=== PATIENT | male | born 1950 | race Caucasian/White ===

== ENCOUNTER 2018-06-20 14:52 | Emergency (ER) | payer MEDICARE, OTHER ==
[~2018-06-20] VITALS: Ht 182.9 cm; Wt 117.0 kg
[~2018-06-20 14:52] MED LIST: ASPIRIN EC81 M1; ASPIRIN EC81 M1 PO; BACTRIM DS TAB1 EACH PO; BYSTOLIC10 MG PO; CARDURA2 MG PO; CIPROFLOXACIN500 M3 PO; DOXEPIN 10 MG C10 M1; GLUCOPHAGE500 MG PO; GLUCOVANCE 5-51 EACH PO; LISINOPRIL20 MG PO; MOBIC15 MG PO; NEXIUM40 MG PO; PERCOCET 5-3251 EACH PO; PYRIDIUM200 M1 PO; TAMSULOSIN HCL0.4 M1 PO; ZOFRAN4 MG PO; ZYVOX600 MG
[2018-06-20] MEDS ORDERED: METFORMIN HCL500 MG PO (15:13)
[2018-06-20] MEDS ORDERED: TRESIBA100 UNIT/1 SUBQ (15:13)
[2018-06-20] MEDS ORDERED: COZAAR 25 MG TA25 M1 PO (15:14)
[2018-06-20] MEDS ORDERED: HUMALOG100 UNIT/1 SUBQ (15:14)
[2018-06-20] MEDS ORDERED: ACETAMINOPHEN-1 EAC1 PO (16:16)
[2018-06-20] MEDS ORDERED: IBUPROFEN 800800 M1 PO (16:17)
[2018-06-20] MEDS ORDERED: NORCO 5-325 TA1 EACH PO (16:32)
[2018-06-20 16:38] VITALS: BP 196/106
== END 2018-06-20 16:39 | disposition home or self-care (01) ==
LOC: M.ERS 14:52
DX: R51 Headache (principal); M54.2 Cervicalgia; M54.6 Pain in thoracic spine; E11.9 Type 2 diabetes mellitus without complications; I10 Essential (primary) hypertension; M19.90 Unspecified osteoarthritis, unspecified site; K21.9 Gastro-esophageal reflux disease without esophagitis; Z88.5 Allergy status to narcotic agent; Z88.6 Allergy status to analgesic agent

== ENCOUNTER → 2018-06-28 | Outpatient (CLI) | payer MEDICARE, OTHER ==
[~2018-06-28] MED LIST changes: +ACETAMINOPHEN-1 EAC1 PO; +COZAAR 25 MG TA25 M1 PO; +HUMALOG100 UNIT/1 SUBQ; +IBUPROFEN 800800 M1 PO; +METFORMIN HCL500 MG PO; +NORCO 5-325 TA1 EACH PO; +TRESIBA100 UNIT/1 SUBQ
== END ==
LOC: M.ULTRA 13:12
DX: M71.21 Synovial cyst of popliteal space [Baker], right knee (principal); R59.9 Enlarged lymph nodes, unspecified

== ENCOUNTER 2020-08-16 11:55 | Inpatient (IN) | payer MEDICARE, OTHER ==
[2020-08-16] VITALS (7 sets, daily range): BP systolic 95–135; BP diastolic 50–78
[~2020-08-16] VITALS: Ht 182.9 cm; Wt 130.7 kg
[2020-08-16] MEDS ORDERED: XARELTO10 M1 PO (12:16)
[2020-08-16 12:20] LABS: ABSOLUTE BASOPHILS 0.1 thou/uL (0.0-0.2); ABSOLUTE EOSINOPHILS 0.1 thou/uL (0.0-0.7); ABSOLUTE LYMPHOCYTES 1.4 thou/uL (0.8-5.3); ABSOLUTE MONOCYTES 0.6 thou/uL (0.0-1.2); ABSOLUTE NEUTROPHILS 3.7 thou/uL (1.6-8.1); BASOPHILS 1.3 %; EOSINOPHILS 1.6 %; HEMATOCRIT 42.3 % (42.0-52.0); HEMOGLOBIN 14.3 gm/dL (14.0-18.0); LYMPHOCYTES 23.8 %; MCH 28.6 pg (26.0-34.0); MCHC 33.7 g/dL (28.0-37.0); MCV 84.8 fL (80.0-100.0); MONOCYTES 10.6 %; MPV 8.9 fl. (7.2-11.1); NUCLEATED RBCS 0 /100WBC; PLATELET COUNT* 189 thou/uL (150-400); POLYS 62.7 %; RBC 4.99 mil/uL (4.50-6.00); RDW-CV 13.8 % (10.5-14.5); WBC 5.9 thou/uL (4.0-11.0)
[2020-08-16 12:28] LABS: CALCIUM 9.2 mg/dL (8.5-10.1); CREATININE 1.9 mg/dL (0.6-1.3); POTASSIUM 3.8 mmol/L (3.5-5.1)
[2020-08-16 12:39] LABS: ALBUMIN 3.8 g/dL (3.4-5.0); MAGNESIUM 1.7 mg/dL (1.8-2.4); TOTAL BILIRUBIN 0.8 mg/dL (<0.1-1.0); TOTAL PROTEIN 6.9 g/dL (6.4-8.2)
--- NOTE | 2020-08-16 17:44 | 2DMMODE ---
[place] [address] 2 D/M-MODE ECHOCARDIOGRAM Name: NICHO CHAVEZ Room: [place] [address] ADM IN [place].#: [id number] Admission: 08/16/20 Attend Phys: Johnie Aquino, Discharge: Date of : 54 Date of Service: 08/16/20 1743 Report #: [id number] THIS REPORT FOR: cc: Gideon Galvan John E. DO Liston, Michael J. MD [facility] ~ APPROVED REPORT Study performed: 08/16/2020 15:40:51 EXAM: Comprehensive 2D, Doppler, and color-flow Echocardiogram Patient Location: In-Patient Room #: ER Status: routine BSA: 2.46 HR: 58 bpm BP: 106/65 mmHg Rhythm: NSR Other Information Study Quality: Good Indications DIZZINESS 2D Dimensions IVSd: 12.35 (7-11mm) LVOT Diam: 21.07 (18-24mm) LVDd: 48.85 mm PWd: 13.43 (7-11mm) Ascending Ao: 39.75 (22-36mm) LVDs: 29.55 (25-40mm) Aortic Root: 34.91 mm Volumes Left Atrial Volume (Systole) LA ESV Index: 26.70 mL/m2 Aortic Valve AoV Peak Fab.: 1.03 m/s AO Peak Gr.: 4.27 mmHg LVOT Max P.51 mmHg AO Mean Gr.: 2.61 mmHg LVOT Mean P.68 mmHg LVOT Max V: 0.94 m/s AO V2 VTI: 20.24 cm LVOT Mean V: 0.60 m/s ELLEN (VTI): 3.43 cm2 LVOT V1 VTI: 19.92 [place] [address] 2 D/M-MODE ECHOCARDIOGRAM Name: NICHO CHAVEZ Room: [address] IN ..#: [id number] Admission: 08/16/20 Attend Phys: Johnie Aquino, Discharge: Date of : 54 Date of Service: 08/16/20 1743 Report #: [id number] Mitral Valve E/A Ratio: 0.54 MV Decel. Time: 290.07 ms MV E Max Fab.: 0.39 m/s MV PHT: 84.12 ms MVA (PHT): 2.62 cm2 Pulmonary Valve PV Peak Fab.: 0.92 m/s PV Peak Gr.: 3.36 mmHg Left Ventricle The left ventricle is normal size. There is normal LV segmental wall motion. There is normal left ventricular wall thickness. Left ventricular systolic function is normal. LVEF is 55-60%. Grade I - abnormal relaxation pattern. Right Ventricle The right ventricle is normal size. The right ventricular systolic function is normal. Atria Left atrium is mildly dilated. The right atrium size is normal. Aortic Valve Mild aortic valve sclerosis. No aortic regurgitation is present. There is no aortic valvular stenosis. Mitral Valve The mitral valve is normal in structure. There is no mitral valve regurgitation noted. No evidence of mitral valve stenosis. Tricuspid Valve The tricuspid valve is normal in structure. Trace tricuspid regurgitation. Unable to assess PA pressure. Pulmonic Valve The pulmonary valve is normal in structure. There is no pulmonic valvular regurgitation. Great Vessels The aortic root is normal in size. The ascending aorta is mildly dilated. (3.98 cm) IVC is normal in size and collapses >50% with inspiration[place] [address] 2 D/M-MODE ECHOCARDIOGRAM Name: CASEY CHAVEZYury HERNANDEZ Room: [address] IN [facility]#: [id number] Admission: 08/16/20 Attend Phys: Johnie Aquino, Discharge: Date of : 54 Date of Service: 08/16/20 1743 Report #: [id number] There is no pericardial effusion. <Conclusion> The left ventricle is normal size. There is normal left ventricular wall thickness. Left ventricular systolic function is normal. LVEF is 55-60%. Grade I - abnormal relaxation pattern. There is normal LV segmental wall motion. Left atrium is mildly dilated. Trace tricuspid regurgitation. IVC is normal in size and collapses >50% with inspiration. The ascending aorta is mildly dilated. (3.98 cm) <ELECTRONICALLY SIGNED> By: Won Barnes MD, [facility] 08/16/20 [id number] Won Barnes MD, FACC /INF
--- NOTE | 2020-08-16 17:45 | EKG ---
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 : 1950 Requested By: Fernandez Hamilton Order Number: [id number] MD: Won Barnes Measurements Intervals Anderson Rate: 81 P: 34 MD: 170 QRS: -10 QRSD: 117 T: 50 QT: 410 QTc: 476 Interpretive Statements Sinus rhythm Nonspecific intraventricular conduction delay Inferior infarct, old Compared to ECG 05/14/2012 12:40:31 Intraventricular conduction delay now present Sinus bradycardia no longer present Myocardial infarct finding still present Electronically Signed On 08-16-2020 17:45:37 CDT by Won Barnes [email or web address] <ELECTRONICALLY SIGNED> By: Won Barnes MD, FACC 08/16/20 1745 1202 1202 Won Barnes MD, FAC /EPI
[2020-08-17] VITALS (8 sets, daily range): BP systolic 129–175; BP diastolic 48–81
[2020-08-17 04:53] LABS: ABSOLUTE BASOPHILS 0.1 thou/uL (0.0-0.2); ABSOLUTE EOSINOPHILS 0.2 thou/uL (0.0-0.7); ABSOLUTE LYMPHOCYTES 1.6 thou/uL (0.8-5.3); ABSOLUTE MONOCYTES 0.6 thou/uL (0.0-1.2); ABSOLUTE NEUTROPHILS 3.5 thou/uL (1.6-8.1); BASOPHILS 1.1 %; EOSINOPHILS 2.7 %; HEMATOCRIT 39.4 % (42.0-52.0); HEMOGLOBIN 13.4 gm/dL (14.0-18.0); LYMPHOCYTES 26.6 %; MCH 28.7 pg (26.0-34.0); MCHC 34.1 g/dL (28.0-37.0); MCV 84.1 fL (80.0-100.0); MONOCYTES 9.9 %; MPV 9.8 fl. (7.2-11.1); NUCLEATED RBCS 0 /100WBC; PLATELET COUNT* 158 thou/uL (150-400); POLYS 59.7 %; RBC 4.68 mil/uL (4.50-6.00); RDW-CV 13.8 % (10.5-14.5); WBC 5.8 thou/uL (4.0-11.0)
[2020-08-17 05:03] LABS: CALCIUM 8.2 mg/dL (8.5-10.1); CREATININE 1.6 mg/dL (0.6-1.3); POTASSIUM 3.6 mmol/L (3.5-5.1)
--- NOTE | 2020-08-17 12:36 | NUR ---
Pt is A&O. Resides at home with . Independent. No DME. No hx of HH or SNF. Anticipate dc to home tomorrow, no needs. Pt to have echo and carotid study today.
[2020-08-17] MEDS ORDERED: NEURONTIN 400400 M1 PO (19:40)
[2020-08-18 00:14] VITALS: BP 151/64
[2020-08-18 08:57] VITALS: BP 159/87
--- NOTE | 2020-08-18 11:19 | NUR ---
DISWCONTINUE IV AND PT UNDERSTANDS ALL FOLLOW UP ORDERS. WILL DISCHARGE TO HOME VIA PRIVATE VEHICLE.
[2020-08-18 11:20] VITALS: BP 159/87
== END 2020-08-18 11:30 | disposition home or self-care (01) | DRG 640 ==
LOC: M.ERS 11:55 → M.TBA-ER 13:18 → M.2W 13:18
PROVIDERS: Emergency Medicine Emergency Medical Services; ADMIT Internal Medicine; ATTEND Internal Medicine
DX: E86.0 Dehydration (principal); N17.0 Acute kidney failure with tubular necrosis; N18.9 Chronic kidney disease, unspecified; I95.2 Hypotension due to drugs; E78.5 Hyperlipidemia, unspecified; K21.9 Gastro-esophageal reflux disease without esophagitis; M19.90 Unspecified osteoarthritis, unspecified site; G89.29 Other chronic pain; E11.22 Type 2 diabetes mellitus with diabetic chronic kidney disease; I12.9 Hypertensive chronic kidney disease with stage 1 through stage 4 chronic kidney disease, or unspecified chronic kidney disease; T50.995A Adverse effect of other drugs, medicaments and biological substances, initial encounter; Z20.822 Contact with and (suspected) exposure to COVID-19; Z79.4 Long term (current) use of insulin; Z79.899 Other long term (current) drug therapy; Z79.01 Long term (current) use of anticoagulants; Z88.5 Allergy status to narcotic agent; Z87.891 Personal history of nicotine dependence; Y92.89 Other specified places as the place of occurrence of the external cause